=== PATIENT | male | born 1950 | race African-American/Black ===

== ENCOUNTER 2017-10-09 10:54 | Day surgery (SDC) | payer MEDICARE ==
[2017-10-06 14:42] VITALS: BMI 30.2
[2017-10-09 11:17] VITALS: PULSE 69; TEMP 98.7
[2017-10-09] MEDS ORDERED: MIDAZOLAM HCL 2 MG/2 ML SINGLE DOSE VIAL ONE ×2 (11:57→12:09)
--- NOTE | 2017-10-09 13:17 | OP ---
Operative Note - Note: Operative Date: 10/09/17 Pre-Operative Diagnosis: Right kidney stone Operation: Right ESWL Findings: 5mm mid pole Right kidney stone Post-Operative Diagnosis: Same as Pre-op Surgeon: Stefan Jordan Anesthesia: Fractional Estimated Blood Loss (mls): 0
[2017-10-09 14:48] VITALS: BP 151/83
--- NOTE | 2017-10-10 08:05 | OP ---
DATE OF OPERATION: 10/09/2017 PREOPERATIVE DIAGNOSIS: Right renal stone. POSTOPERATIVE DIAGNOSIS: Right renal stone. PROCEDURE: Right extracorporeal shock wave lithotripsy. ATTENDING: Stefan Alexander MD ANESTHESIA: General. DESCRIPTION OF OPERATION: The patient was brought in the operating room and placed in supine position on the operating room table. Ultrasonography and fluoroscopy were performed. A 5-mm right mid-pole stone was identified. Anesthesia and preoperative antibiotics were then administered; 2500 impulses at 17 joules of power were administered to the stone with excellent fragmentation under real-time ultrasonography and fluoroscopy. No complications were noted. The patient tolerated the procedure very well. The disposition of the patient was to the recovery room. Kun [id number]
== END 2017-10-09 15:08 | disposition home or self-care (01) ==
LOC: JASU-SURG 10:54
PROVIDERS: ATTEND Urology
PROC: 0TF3XZZ Fragmentation in Right Kidney Pelvis, External Approach (ICD-10-PCS; principal; 2017-10-09 12:30)
DX: N20.0 Calculus of kidney (principal)
CPT/HCPCS: 82962